=== PATIENT | female | born 1965 | race Caucasian/White ===

== ENCOUNTER 2016-04-14 07:07 | Inpatient (IN) | payer BC ==
[2016-04-08 16:50] LABS: HEMATOCRIT 43.2 % (36.0-48.0); HEMOGLOBIN 14.5 g/dL (12.0-16.0)
--- NOTE | ~2016-04-14 | CN ---
Consultation Report [facility] [address] [facility] [place]. [address] NAME: SANTO LESTER : 67 STATUS : ADM Ward PAT#: [id number] AGE: 51 ADM/REG DATE : 04/14/16 MR#: [id number] REPORT SERV DATE: 04/16/16 DICTATED BY: LORENZA AGEE DATE: 04/16/16 REPORT STATUS : Draft TRANSCRIBED BY: MODL DATE: 04/16/16 PULMONARY CONSULTATION DATE OF CONSULTATION: 04/16/2016 REASON FOR CONSULTATION: Persistent hypoxia. HISTORY OF PRESENT ILLNESS: Ms. Lester is a 51-year-old white female nonsmoker with a history of MS, who is status post partial thyroidectomy. She has persistent hypoxia and hypercapnia with notable atelectasis on chest imaging, so Pulmonary was consulted for assistance. Currently, the patient feels at her baseline. She states she has ongoing hypersomnolence and fatigue for several years and sleeps "all the time." She has had MS for some time and states her symptoms have been progressing. She describes profound weakness and significant limitation of her activities. She has never been evaluated with a sleep study or overnight oximetry. She denies other pulmonary symptoms including shortness of breath, cough, or wheezing. It is notable that she has remained hypoxic, hypercapnic, and lethargic despite pulmonary toilet and bronchodilators here as an inpatient. PAST MEDICAL HISTORY: 1. Postoperative pulmonary embolism in 1992 - the patient had partial thyroidectomy in 1992 and developed a postoperative pulmonary embolism. 2. Partial thyroidectomy this hospitalization. 3. Partial thyroidectomy in 1992. 4. Cholecystectomy. 5. GERD. 6. Hypothyroidism. 7. Hysterectomy. 8. D and C. 9. Tonsillectomy. FAMILY HISTORY: She denies a family history of pulmonary diseases. SOCIAL HISTORY: Ms. Lester is a lifelong nonsmoker. She denies ethanol intake, past/present drug use, chewing tobacco, or occupational exposures. She is and has one son. MEDICATIONS: Ms. Lester was on no pulmonary medications as an outpatient. ALLERGIES: HYDROCODONE. Consultation Report [facility] [address] [facility] [place]. [address] NAME: SANTO LESTER : 67 STATUS : ADM Ward PAT#: [id number] AGE: 51 ADM/REG DATE : 04/14/16 MR#: [id number] REPORT SERV DATE: 04/16/16 DICTATED BY: CYNDIELORENZA JOHANA DATE: 04/16/16 REPORT STATUS : Draft TRANSCRIBED BY: RIP DATE: 04/16/16 REVIEW OF SYSTEMS: A 10-point system review was conducted and is remarkable for the symptoms as described in the history of present illness. PHYSICAL EXAMINATION: VITAL SIGNS: Temperature 98.2 degrees, heart rate 82, blood pressure 99/54, respiratory rate 14, and oxygen saturation 96% on supplemental oxygen at a flow rate of 2.5 L/minute. GENERAL: Sleepy/lethargic white female. Awakens to voice, but does this frequently during exam. Oriented/appropriate. No apparent distress. HEENT: Normocephalic. Atraumatic. There is no scleral icterus. The conjunctivae are clear. The oropharynx is clear. LUNGS: Poor effort. There are diminished breath sounds throughout. There are no crackles, wheezes, or rhonchi. HEART: Regular rate and rhythm. ABDOMEN: Soft. Nontender. Nondistended. There are normal bowel sounds in all four quadrants. BILATERAL EXTREMITIES: There is no clubbing, cyanosis, or edema. NEUROLOGICAL: A limited exam was found to be nonfocal. There is significant generalized weakness. SKIN: No rashes were noted. LABORATORY RESULTS: The labs were reviewed and are as documented in the record. Notable labs include a white blood cell count of 9.0. The BNP is 110.6. Arterial blood gas done with the patient breathing supplemental oxygen at a flow rate of 2 L/minute revealed a pH of 7.35, pCO2 of 63, and pO2 of 51. IMAGING: Chest x-ray done this admission revealed bibasilar atelectasis, but no infiltrates. A CT angiogram of the chest done this admission revealed no infiltrates or effusions. There is no pulmonary embolism. There is significant atelectasis and eventration of the right hemidiaphragm. ASSESSMENT AND PLAN: Ms. Lester is a 51-year-old white female, nonsmoker, with atelectasis, hypercapnia, hypoxia, and chronic hypersomnolence likely secondary to hypoventilation related to her underlying multiple sclerosis. She likely would benefit from BiPAP, both inpatient and chronically as an outpatient. She is agreeable to a trial, so we will initiated it tonight if it is okay with ENT. She should qualify for home BiPAP based on her hypercapnia - as noted above, her pCO2 is 63 on arterial blood gas. She is hypoxic as well. Recommend continuing pulmonary toilet. We would evaluate her for home supplemental oxygen. Consultation Report [facility] [address] [place]. [address] NAME: SANTO LESTER : 67 STATUS : ADM Ward PAT#: [id number] AGE: 51 ADM/REG DATE : 04/14/16 MR#: [id number] REPORT SERV DATE: 04/16/16 DICTATED BY: LORENZA AGEE DATE: 04/16/16 REPORT STATUS : Draft TRANSCRIBED BY: RIP DATE: 04/16/16 Thank you very much for this consultation. PS/RIP Lorenza Agee M.D. / [id number] CC: Swapna Hoffman M.D.
--- NOTE | ~2016-04-14 | CN ---
Consultation Report [facility] [address] [place]. [address] NAME: SANTO ADDISON : 67 STATUS : ADM Ward PAT#: [id number] AGE: 51 ADM/REG DATE : 04/14/16 MR#: [id number] REPORT SERV DATE: 04/15/16 DICTATED BY: JANICE LUCAS DATE: 04/15/16 REPORT STATUS : Draft TRANSCRIBED BY: MODL DATE: 04/15/16 CONSULT DATE OF CONSULTATION: REASON FOR CONSULT: Postop hypoxia. HISTORY OF PRESENT ILLNESS: This is a very pleasant 51 years old female, very poor historian; she has a history of MS, but she is not on any treatment for that; history of prior thyroidectomy, partial, in 1992 with a small PE according to the patient after the procedure; she had a history of GERD; history of thyroid nodules, who has been admitted to ENT Service for partial left thyroid lobe removal performed by Dr. Rios on 04/14/2016. Postoperatively, the patient was doing great, but she was having difficulties weaning her oxygen down. She has not been complaining of any chest pain or increasing shortness of breath. No PND or orthopnea. She did not have any cough or sputum production. She has not had any nausea or vomiting. No other complaints. The patient was saturating about 75% on room air saturating about 90% to 93% on 2 L of oxygen. Hospitalist Service has been consulted for her postop hypoxia. PAST MEDICAL HISTORY: Significant for MS, thyroid nodule, GERD, PE, and history of hypothyroidism. PAST SURGICAL HISTORY: Includes partial thyroidectomy in 1992, cholecystectomy in 1999, D and C, hysterectomy in 1997, and tonsillectomy when she was 7 years old. SOCIAL HISTORY: She is denying tobacco, alcohol, or IV drugs. ALLERGIES: SHE IS ALLERGIC TO HYDROCODONE. FAMILY HISTORY: Significant for diabetes. HOME MEDICATIONS: She denies any home medications. OBJECTIVE: VITAL SIGNS: The patient is afebrile, blood pressure 119/63, heart rate 66, respiratory rate 16, saturating 92% on 2 L of oxygen. GENERAL: She is a very pleasant, well-developed, well-nourished female, in no acute distress. She is alert and oriented x3. She is nonfocal. She follows all her commands appropriately. HEENT: Exam shows pupils equal, round, reactive to light. Extraocular movements intact. No JVD. No lymphadenopathy. No thyromegaly appreciated. CHEST: Eval shows bilateral air entry. Clear anteroposterior. No wheezes, crackles, or rhonchi appreciated. CARDIOVASCULAR: She has regular rate and rhythm. S1, S2 positive. No S3, no S4. No murmurs, rubs, or gallops appreciated. Consultation Report [address] [place]. [address] NAME: SANTO ADDISON : 67 STATUS : ADM Ward PAT#: [id number] AGE: 51 ADM/REG DATE : 04/14/16 MR#: [id number] REPORT SERV DATE: 04/15/16 DICTATED BY: JANICE LUCAS DATE: 04/15/16 REPORT STATUS : Draft TRANSCRIBED BY: RIP DATE: 04/15/16 ABDOMEN: Soft with positive bowel sounds. Nontender. No guarding. No rebound. EXTREMITIES: No clubbing, cyanosis, or edema. NEUROLOGIC: The patient is alert and oriented x3. She is nonfocal. She follows all her commands appropriately. LABORATORY DATA: Labs from today include sodium 142, potassium 4.3, chloride 101, CO2 of 31, BUN 8, creatinine 0.55, glucose 245. Her white count is 6.9, hemoglobin 14.3, hematocrit 43.3, and platelets 138 on 04/14/2016. INR is 1.1. ASSESSMENT AND PLAN: This is a very pleasant 51 years old female. 1. Status post complete left thyroid nodule removal with postoperative hypoxia. 2. History of multiple sclerosis. 3. History of gastroesophageal reflux disease. We are going to plan an ABG for her. We are going to check a chest x-ray as well as a CT of chest with PE protocol. Check BNP and a set of cardiac enzymes. CBC as well. Nebulizer treatment. Check a hemoglobin A1c. We are going to provide incentive spirometer as well as followup labs in the morning. Further workup and recommendation pending above. Thank you for the consult. We will continue to follow with you. CF/MODL Janice Lucas M.D. / [id number] CC: Swapna Hoffman M.D.
--- NOTE | ~2016-04-14 | DS ---
Discharge Summary [facility] [address] [place]. [address] NAME: SANTO ADDISON : 67 STATUS : DIS IN PAT#: [id number] AGE: 51 ADM/REG DATE : 04/14/16 MR#: [id number] REPORT SERV DATE: 06/08/16 DICTATED BY: HOMERO STOUT DATE: 06/07/16 REPORT STATUS : Draft TRANSCRIBED BY: MODMichaela DATE: 06/07/16 ADMISSION DATE: 04/14/2016 DISCHARGE DATE: 04/20/2016 ADMITTING HISTORY AND PHYSICAL: The patient is a 51-year-old female with significant left thyroid lobe goiter and difficulty swallowing over the last the year. She has had a previous right thyroid lobectomy. PAST MEDICAL HISTORY: Includes and multiple sclerosis. PAST SURGICAL HISTORY: Includes tonsillectomy, ear surgery, hysterectomy, gallbladder, and again right thyroid lobectomy. MEDICATIONS: None. ALLERGIES: HYDROCODONE. FAMILY HISTORY: Pertinent for diabetes. PHYSICAL EXAMINATION: GENERAL: She was awake, alert, and oriented, in no acute distress. NECK: Examination of the neck shows a large left thyroid lobe goiter. BREASTS: Exam was not done. HEART: Regular rate and rhythm. LUNGS: Clear to auscultation. ABDOMEN: Soft. MUSCULOSKELETAL: Exam demonstrated some mild spasticity, but all extremities were mobile. HOSPITAL COURSE: The patient was admitted to the hospital on 04/14/2016 and underwent completion thyroidectomy with excision of the left thyroid lobe. The patient, postoperatively on postop day one, had some increased somnolence, but voice was clear and calcium levels were stable. Initially, the intention was to discharge to home on 04/15/2016; however, has continued to have increased somnolence and was asked to be seen by Pulmonology. She continued to be followed, continued to have increased somnolence. The Hospitalist Service also was following her and there is a suspicion for flareup of her multiple sclerosis causing respiratory suppression. She has changed to an inpatient status on 04/16/2016 after continuing with hypoxia and somnolence. She was eventually consulted by Neurology, where they noted encephalopathy with increased ammonia level and increased CO2 level. Was started on Solu-Medrol 500 mg IV b.i.d. for three days and had an MRI to evaluate for central lesion. While on her IV Solu-Medrol, she had marked improvement in her respiratory status and was transferred out of the intensive care unit to the floor on 04/19/2016. On 04/20/2016, she was stable and she was supporting her own oxygenation and was deemed stable for discharge to home. DISPOSITION: Home. Discharge Summary [facility] [id number] [address] NAME: SANTO ADDISON : 67 STATUS : DIS IN PAT#: [id number] AGE: 51 ADM/REG DATE : 04/14/16 MR#: [id number] REPORT SERV DATE: 06/08/16 DICTATED BY: HOMERO STOUT. DATE: 06/07/16 REPORT STATUS : Draft TRANSCRIBED BY: RIP DATE: 06/07/16 DISCHARGE MEDICATIONS: Include resumption of home medications. FOLLOWUP: With me in one week. DLA/CHAUNCEYL Homero Stout M.D. / [id number] CC: Swapna Hoffman M.D.
--- NOTE | ~2016-04-14 | CN ---
Consultation Report [facility] [address] [place]. [address] NAME: SANTO ADDISON : 67 STATUS : ADM Ward PAT#: [id number] AGE: 51 ADM/REG DATE : 04/14/16 MR#: [id number] REPORT SERV DATE: 04/17/16 DICTATED BY: DATE: REPORT STATUS : Draft TRANSCRIBED BY: MODL DATE: 04/17/16 NEUROLOGY CONSULTATION DATE OF CONSULTATION: 04/17/2016 REASON FOR CONSULT: Encephalopathy and history of multiple sclerosis. HISTORY OF PRESENT ILLNESS: This is a 51-year-old female, who presented to [facility] on 04/14/2016, for partial thyroidectomy, where patient has her residual thyroid tissue was removed, the patient afterwards was noted to have respiratory difficulties, required pulmonary consult, with the patient noted to have a CO2 retention. The patient was noted to have confusion for the past two to three days, it was significantly worse today, with the patient noted to have decreased level of consciousness. As a result, the patient was transferred from the floor to intensive care unit. The patient does carry a history of multiple sclerosis and diagnosis, which the patient was diagnosed by Dr. Claudio, roughly seven or eight years ago, the patient does not like the standard MS therapies side effect as a result, the patient is currently not on MS immune modulating therapy. The patient has not had any neurology follow up over the past one to two years. Previously, the patient's MS attack mostly consists of weakness, with the patient's most severe attack caused the patient to have difficulty walking. The patient usually treats the acute exacerbation with IV steroids at baseline, usually ambulates with a cane. Prior to the surgery patient does not appear to have any focal weakness, numbness, fever, or chill. During the hospitalization no reports of fever was otherwise noted. The patient's reports generalized weakness since the thyroidectomy, but otherwise denies any focal weakness, and denies any complaints of numbness from the patient. The patient does not have any cognitive difficulties and does not have any memory issues with disorientation prior to the hospitalization. PAST MEDICAL HISTORY: The patient's past medical history is significant for history of multiple sclerosis, as well as previous history of thyroidectomy in 1992, with the patient noted to have left thyroidectomy for the rest of the thyroid tissue on 04/14/2016, the patient also has had history of hypothyroidism, pulmonary embolisms after previous thyroid surgery, as well as gastroesophageal reflux disease. SOCIAL HISTORY: Denies tobacco, alcohol, or recreational drug usage. ALLERGIES: THE PATIENT WAS NOTED TO HAVE ALLERGY TO HYDROCODONE. FAMILY HISTORY: Significant for diabetes. CURRENT MEDICATIONS: DuoNeb, Glucotrol, Lovenox, NovoLog, Synthroid, the patient received p.o. Percocet during the hospitalization, as well as p.r.n. Zofran. REVIEW OF SYSTEMS: Unable to be obtained from the patient, according to family it is negative except for those Consultation Report [address] [address] NAME: SANTO ADDISON : 67 STATUS : ADM Ward PAT#: [id number] AGE: 51 ADM/REG DATE : 04/14/16 MR#: [id number] REPORT SERV DATE: 04/17/16 DICTATED BY: DATE: REPORT STATUS : Draft TRANSCRIBED BY: MODL DATE: 04/17/16 mentioned in the HPI. PHYSICAL EXAMINATION: VITAL SIGNS: The patient overnight was noted to have vital signs with T-max of 99.3, heart rate of 86 to 104, respirations of 12 to 22, and blood pressure of 111 to 139/55 to 74. GENERAL: The patient is well-developed, well-nourished, in no acute distress. CARDIOVASCULAR: Tachycardic, but otherwise no carotid bruits were auscultated. PULMONARY: Clear to auscultation bilaterally. NEUROLOGIC: Generally, the patient was obtunded, but arousable, difficulty maintaining arousal at the time of evaluation, with the patient noted to have obtundation, arousable with verbal and tactile stimulation. The patient is able to follow simple commands once aroused, the patient was noted to have BiPAP machine on as a result was noted to have difficulty verbalization. Cranial nerves 2 through 12. Pupils equal, round, and reactive to light. Horizontal eye movement was noted to be intact with blink to threat response. At the time of evaluation, was noted to have symmetrical bilateral upper face expression. The patient otherwise is able to move bilateral upper and lower extremities on command at this time of evaluation. The patient noted to have sensation in bilateral upper and lower extremities. Deep tendon reflex was otherwise 1+ throughout. No plantar reflexes were obtainable, secondary to the patient's mental status. Gait and cerebellar examination was not evaluated. LABORATORY STUDIES: At the time of evaluation demonstrated white blood cell count of 9.0, hemoglobin of 12.2, hematocrit of 39.1, and platelet count of 115. Chemistry panel, sodium 142, potassium 4.0, chloride 100, bicarb 34, BUN of 6, creatinine 0.53, glucose of 212, calcium of 8.4, magnesium of 1.8. Serum ammonia level of 52, folate of 13.0, vitamin B12 was 620, TSH of 0.402, free T4 of 1.23. ABG demonstrated pH of 7.34, pCO2 was 65, PO2 of 57, bicarb of 34.1, and O2 saturation of 89.1. No neuro imaging was currently available. IMPRESSION: Encephalopathy, increased pCO2, as well as hypoxia noted, on ABG with hyperammonemia concern for possible etiology contributing to the patient's encephalopathy. The patient also has a history of multiple sclerosis, concern for possible MS attack as well, we will repeat serum ammonia level in the morning. Meanwhile, we will start the patient on trial of IV Solu-Medrol 500 mg IV b.i.d. for three days. MRI of the brain with and without contrast when the patient is clinically stable. RECOMMENDATION: 1. Repeat serum ammonia level. 2. Solu-Medrol 500 mg IV b.i.d. x3 days. 3. MRI of the brain with and without contrast when the patient is clinically stable. 4. Critical care to manage patient's respiratory issues. [facility]/MODL Consultation Report [address] [place]. [address] NAME: SANTO ADDISON : 67 STATUS : ADM Ward PAT#: [id number] AGE: 51 ADM/REG DATE : 04/14/16 MR#: [id number] REPORT SERV DATE: 04/17/16 DICTATED BY: DATE: REPORT STATUS : Draft TRANSCRIBED BY: MODL DATE: 04/17/16 Wilbert Boyer MD / [id number] CC: Swapna Hoffman M.D.
--- NOTE | ~2016-04-14 | OP ---
Record Of Operation [facility] [address] [place]. [address] NAME: SANTO ADDISON : 67 STATUS : ADM IN PAT#: [id number] AGE: 51 ADM/REG DATE : 04/14/16 MR#: [id number] REPORT SERV DATE: 04/20/16 DICTATED BY: HOMERO STOUT DATE: 04/20/16 REPORT STATUS : Draft TRANSCRIBED BY: MODMichaela DATE: 04/20/16 DATE OF PROCEDURE: 04/14/2016 PREOPERATIVE DIAGNOSIS: Left thyroid lobe goiter. POSTOPERATIVE DIAGNOSIS: Left thyroid lobe goiter. PROCEDURE PERFORMED: Left thyroid completion thyroidectomy. INDICATIONS AND SIGNIFICANT HISTORY: The patient is a 51-year-old female with significant history of multiple sclerosis who has a history of right thyroid lobectomy many years before. She has since had progression of the left thyroid lobe nodule and was felt to benefit from thyroid lobectomy or completion thyroidectomy. OPERATIVE PROCEDURE AND FINDINGS: After informed consent was obtained, the patient was brought to the operating room and placed on the operating table in the supine position at which point general endotracheal anesthesia was induced by the Anesthesia Service, and the neck was scrubbed, prepped, and prepped in the standard sterile fashion. A 15-blade scalpel was used to make an incision in her low midportion of the neck through an old scar. The old scar was excised partially using a Metzenbaum scissors. At this point, subplatysmal flaps were elevated superiorly and inferiorly. Strap muscles were divided in the midline and extended laterally. Blunt dissection was utilized over the left thyroid lobe. Middle thyroid veins were encountered and divided with bipolar cautery. Superior pole vessel was isolated with a right angle clamp and divided with Harmonic scalpel. The inferior pole vessels were divided in a similar fashion. Next, going from lateral to medial, soft tissue was reflected off the surface of the left thyroid lobe in attempts to preserve the parathyroid function. The recurrent laryngeal nerve was identified and preserved throughout the case. The left thyroid lobe was then removed and was passed to Pathology for permanent sectioning. The patient's wound was inspected. She did have a fair amount of bloody drainage and a raw wound bed. This was controlled. A 10-flat YANA drain was placed into the wound and brought out through a separate stab incision. The patient's wound was then closed in multiple layers consisting of a deep Vicryl suture followed by closure of the skin with Prolene. Steri-Strips were applied. She was turned back towards anesthesia, aroused from anesthesia, and taken to the postanesthesia care unit in satisfactory condition. COMPLICATIONS: None. ESTIMATED BLOOD LOSS: 100 mL. IV FLUIDS: Per Anesthesia. ELI/RIP Homero Jennings Record Of Operation [facility] [address] [facility] [address] [facility] [address] NAME: SANTO ADDISON : 67 STATUS : ADM IN [facility]#: [id number] AGE: 51 ADM/REG DATE : 04/14/16 MR#: [id number] REPORT SERV DATE: 04/20/16 DICTATED BY: HOMERO STOUT. DATE: 04/20/16 REPORT STATUS : Draft TRANSCRIBED BY: RIP DATE: 04/20/16 Swapna Stout / [id number] CC: Swapna Hoffman M.D.
[~2016-04-14 07:07] MED LIST: *DENIES; NO HOME MEDS; [UNRECOGNIZED DRUG - OTHER]
[2016-04-14 08:08] LABS: BASOPHILS 0.1 %; BASOPHILS ABSOLUTE 0.01 10/3/uL (0.0-0.16); EOSINOPHILS 1.4 %; HEMATOCRIT 43.3 % (36.0-48.0); HEMOGLOBIN 14.3 g/dL (12.0-16.0); IMMATURE GRANULOCYTES 0.4 %; IMMATURE GRANULOCYTES ABSOLUTE 0.03 10/3/uL (0.0-0.11); LYMPHOCYTES 30.8 %; LYMPHOCYTES ABSOLUTE 2.13 10/3/uL (0.67-4.30); MEAN CORPUSCULAR HEMOGLOB 30.6 pg (26.0-34.0); MEAN CORPUSCULAR VOLUME 92.7 fL (80-100); MEAN PLATELET VOLUME 9.5 fL (9.2-13.0); MONOCYTES 5.1 %; MONOCYTES ABSOLUTE 0.35 10/3/uL (0.21-1.20); NEUTROPHILS 62.2 %; NEUTROPHILS ABSOLUTE 4.29 10/3/uL (2.02-8.40); PLATELET COUNT 138 10/3/uL (150-400); RBC DISTRIBUTION WIDTH 13.6 % (12.0-16.0); RED CELL COUNT 4.67 10/6/uL (4.0-5.6); WHITE BLOOD CELLS 6.9 10/3/uL (4.5-10.5)
[2016-04-14 08:09] LABS: MANUAL DIFF NO %
[2016-04-14 08:15] LABS: INTERNATIONAL NORMAL RATI 1.1 UNITS (-); PROTIME (NOT ORD) 13.7 SEC (12.0-14.5)
[2016-04-14 08:23] LABS: BUN (BLOOD UREA NITROGEN) 10 MG/DL (6-23); CALCIUM, SERUM 8.9 MG/DL (8.5-10.4); CHLORIDE, SERUM 106 MMOL/L (96-112); CO2 (CARBON DIOXIDE) 28 MMOL/L (24-34); CREATININE 0.54 MG/DL (0.55-1.02); GFR AFRICAN AMERICAN 128 ML/MIN (>=60); GFR NON AFRICAN AMERICAN 110 ML/MIN (>=60); GLUCOSE, SERUM 200 MG/DL (60-99); POTASSIUM, SERUM 3.7 MMOL/L (3.5-5.3); SODIUM, SERUM 145 MMOL/L (135-148)
[2016-04-14 10:35] LABS: PTH TAT 0 Hrs 19 Mins
[2016-04-15 06:20] LABS: BUN (BLOOD UREA NITROGEN) 8 MG/DL (6-23); CALCIUM, SERUM 8.3 MG/DL (8.5-10.4); CHLORIDE, SERUM 101 MMOL/L (96-112); CO2 (CARBON DIOXIDE) 31 MMOL/L (24-34); CREATININE 0.55 MG/DL (0.55-1.02); GFR AFRICAN AMERICAN 127 ML/MIN (>=60); GFR NON AFRICAN AMERICAN 109 ML/MIN (>=60); POTASSIUM, SERUM 4.3 MMOL/L (3.5-5.3); SODIUM, SERUM 142 MMOL/L (135-148)
[2016-04-15 06:22] LABS: GLUCOSE, SERUM 245 MG/DL (60-99)
[2016-04-15] MEDS ORDERED: ENDOCET1 TAB PO (08:43)
[2016-04-15] MEDS ORDERED: ZOFRAN ODT4 MG PO (08:44)
[2016-04-15] MEDS ORDERED: LEVOTHYROXIN100 MCG PO (08:45)
[2016-04-15 15:48] LABS: ALLENS TEST Pos; BE (BASE EXCESS) 6.4 MEQ/L (0 +/- 2.5); DEVICE NC; HCO3 (ACTUAL BICARBONATE) 33.9 MEQ/L (23-27); HEMOBLOGIN CONTENT 12.4 G/DL (12-16); INSTRUMENT SERIAL # 8083; METHEMOGLOBIN 0.1 % (0-3); O2 CONTENT 14.8 VOL% (18-24); PCO2 (CO2 TENSION) 63 MMHG (35-45); PO2 (O2 TENSION) 51 MMHG (79-93); SAMPLE Arterial; pH 7.35 (7.37-7.43)
[2016-04-15 16:28] LABS: B NATRIURETIC PEPTIDE (BNP) 110.6 PG/ML (< 100.0)
[2016-04-15 16:49] LABS: CK-MB 5.7 NG/ML; FOLATE 9.3 NG/ML (>5.2); TROPONIN I 0.03 NG/ML (<0.05)
[2016-04-15 21:39] LABS: GLYCOHEMOGLOBIN (HbA1c) 8.1 % (4.7-6.1)
[2016-04-16 06:32] LABS: BASOPHILS 0.1 %; BASOPHILS ABSOLUTE 0.01 10/3/uL (0.0-0.16); EOSINOPHILS 0.7 %; EOSINOPHILS ABSOLUTE 0.06 10/3/uL (0.0-0.53); HEMATOCRIT 39.1 % (36.0-48.0); HEMOGLOBIN 12.2 g/dL (12.0-16.0); IMMATURE GRANULOCYTES ABSOLUTE 0.09 10/3/uL (0.0-0.11); LYMPHOCYTES 15.9 %; LYMPHOCYTES ABSOLUTE 1.43 10/3/uL (0.67-4.30); MEAN CORPUSCULAR HEMOGLOB 29.5 pg (26.0-34.0); MEAN CORPUSCULAR VOLUME 94.7 fL (80-100); MEAN PLATELET VOLUME 9.9 fL (9.2-13.0); MONOCYTES 5.2 %; MONOCYTES ABSOLUTE 0.47 10/3/uL (0.21-1.20); NEUTROPHILS 77.1 %; NEUTROPHILS ABSOLUTE 6.95 10/3/uL (2.02-8.40); PLATELET COUNT 115 10/3/uL (150-400); RBC DISTRIBUTION WIDTH 14.2 % (12.0-16.0); RED CELL COUNT 4.13 10/6/uL (4.0-5.6)
[2016-04-16 06:33] LABS: MANUAL DIFF NO %; MEAN CORPUS HGB CONC 31.2 g/dL (32.0-36.0)
[2016-04-16 06:50] LABS: BUN (BLOOD UREA NITROGEN) 8 MG/DL (6-23); CALCIUM, SERUM 8.4 MG/DL (8.5-10.4); CHLORIDE, SERUM 104 MMOL/L (96-112); CO2 (CARBON DIOXIDE) 32 MMOL/L (24-34); CREATININE 0.52 MG/DL (0.55-1.02); GFR AFRICAN AMERICAN 129 ML/MIN (>=60); GFR NON AFRICAN AMERICAN 111 ML/MIN (>=60); POTASSIUM, SERUM 3.5 MMOL/L (3.5-5.3); SODIUM, SERUM 145 MMOL/L (135-148)
[2016-04-16 06:53] LABS: GLUCOSE, SERUM 183 MG/DL (60-99)
[2016-04-16 21:30] LABS: ALLENS TEST Pos; BE (BASE EXCESS) 6.1 MEQ/L (0 +/- 2.5); CARBOXYHEMOGLOBIN 0.7 % (0-3); HCO3 (ACTUAL BICARBONATE) 33.5 MEQ/L (23-27); HEMOBLOGIN CONTENT 11.4 G/DL (12-16); INSTRUMENT SERIAL # 8083; METHEMOGLOBIN 0.1 % (0-3); OPERATOR ID 31061; PCO2 (CO2 TENSION) 64 MMHG (35-45); PO2 (O2 TENSION) 71 MMHG (79-93); SAMPLE Arterial; pH 7.34 (7.37-7.43)
[2016-04-17 04:44] LABS: BUN (BLOOD UREA NITROGEN) 6 MG/DL (6-23); CALCIUM, SERUM 8.4 MG/DL (8.5-10.4); CHLORIDE, SERUM 100 MMOL/L (96-112); CO2 (CARBON DIOXIDE) 34 MMOL/L (24-34); CREATININE 0.53 MG/DL (0.55-1.02); GFR AFRICAN AMERICAN 128 ML/MIN (>=60); GFR NON AFRICAN AMERICAN 111 ML/MIN (>=60); GLUCOSE, SERUM 212 MG/DL (60-99); SODIUM, SERUM 142 MMOL/L (135-148)
[2016-04-17 05:29] LABS: ALLENS TEST Pos; BE (BASE EXCESS) 6.4 MEQ/L (0 +/- 2.5); DEVICE NC; HCO3 (ACTUAL BICARBONATE) 34.1 MEQ/L (23-27); HEMOBLOGIN CONTENT 12.2 G/DL (12-16); INSTRUMENT SERIAL # 8083; METHEMOGLOBIN 0.1 % (0-3); O2 CONTENT 15.1 VOL% (18-24); PCO2 (CO2 TENSION) 65 MMHG (35-45); PO2 (O2 TENSION) 57 MMHG (79-93); SAMPLE Arterial; pH 7.34 (7.37-7.43)
[2016-04-17 11:13] LABS: ALBUMIN 2.8 G/DL (3.5-5.0); ALKALINE PHOSPHATASE 114 U/L (45-117); DIRECT BILIRUBIN 0.2 MG/DL (0.0-0.4); INDIRECT BILIRUBIN(NOT ORDER) 0.5 MG/DL (0.1-0.9); SGOT(AST) 56 U/L (5-40); SGPT(ALT) 64 U/L (5-65); TOTAL BILIRUBIN 0.7 MG/DL (0-1.2)
[2016-04-17 12:18] LABS: FREE T4 1.23 NG/DL (0.76-1.46)
[2016-04-17 12:20] LABS: ULTRASENSITIVE TSH 0.402 MCIU/ML (0.358-3.740)
[2016-04-17 14:04] LABS: ALLENS TEST Pos; BE (BASE EXCESS) 6.7 MEQ/L (0 +/- 2.5); BIPAP 18/5 cm.H2O; CARBOXYHEMOGLOBIN 1.3 % (0-3); HCO3 (ACTUAL BICARBONATE) 34.6 MEQ/L (23-27); HEMOBLOGIN CONTENT 12.3 G/DL (12-16); INSTRUMENT SERIAL # 8083; METHEMOGLOBIN 0.2 % (0-3); O2 CONTENT 16.6 VOL% (18-24); PCO2 (CO2 TENSION) 67 MMHG (35-45); PO2 (O2 TENSION) 92 MMHG (79-93); SAMPLE Arterial; pH 7.33 (7.37-7.43)
[2016-04-17 14:14] LABS: BE (BASE EXCESS) 6.4 MEQ/L (0 +/- 2.5); DEVICE NC; HCO3 (ACTUAL BICARBONATE) 34.1 MEQ/L (23-27); HEMOBLOGIN CONTENT 12.2 G/DL (12-16); INSTRUMENT SERIAL # 8083; METHEMOGLOBIN 0.1 % (0-3); O2 CONTENT 15.1 VOL% (18-24); PCO2 (CO2 TENSION) 65 MMHG (35-45); PO2 (O2 TENSION) 57 MMHG (79-93); SAMPLE Arterial; pH 7.34 (7.37-7.43)
[2016-04-17 14:15] LABS: ALLENS TEST Pos
[2016-04-18 03:58] LABS: BE (BASE EXCESS) 6.5 MEQ/L (0 +/- 2.5); CARBOXYHEMOGLOBIN 0.6 % (0-3); HCO3 (ACTUAL BICARBONATE) 33.5 MEQ/L (23-27); HEMOBLOGIN CONTENT 11.8 G/DL (12-16); INSTRUMENT SERIAL # 8083; METHEMOGLOBIN 0.2 % (0-3); O2 CONTENT 15.1 VOL% (18-24); PCO2 (CO2 TENSION) 61 MMHG (35-45); PO2 (O2 TENSION) 63 MMHG (79-93); pH 7.36 (7.37-7.43)
[2016-04-18 03:59] LABS: ALLENS TEST Pos; BIPAP 18/5 cm.H2O; OPERATOR ID 31061; SAMPLE Arterial
[2016-04-18 05:19] LABS: BASOPHILS 0 %; EOSINOPHILS 0 %; HEMOGLOBIN 10.9 g/dL (12.0-16.0); IMMATURE GRANULOCYTES 0.8 %; IMMATURE GRANULOCYTES ABSOLUTE 0.04 10/3/uL (0.0-0.11); LYMPHOCYTES 7.9 %; LYMPHOCYTES ABSOLUTE 0.41 10/3/uL (0.67-4.30); MEAN CORPUS HGB CONC 32.2 g/dL (32.0-36.0); MEAN CORPUSCULAR HEMOGLOB 30.4 pg (26.0-34.0); MEAN CORPUSCULAR VOLUME 94.4 fL (80-100); MEAN PLATELET VOLUME 9.5 fL (9.2-13.0); MONOCYTES 0.6 %; MONOCYTES ABSOLUTE 0.03 10/3/uL (0.21-1.20); NEUTROPHILS 90.7 %; NEUTROPHILS ABSOLUTE 4.73 10/3/uL (2.02-8.40); PLATELET COUNT 110 10/3/uL (150-400); RED CELL COUNT 3.59 10/6/uL (4.0-5.6)
[2016-04-18 05:22] LABS: HEMATOCRIT 33.9 % (36.0-48.0); MANUAL DIFF NO %; WHITE BLOOD CELLS 5.2 10/3/uL (4.5-10.5)
[2016-04-18 05:37] LABS: A/G RATIO 0.7 (0.7-1.9); ALBUMIN 2.4 G/DL (3.5-5.0); CALCIUM, SERUM 8.6 MG/DL (8.5-10.4); CHLORIDE, SERUM 99 MMOL/L (96-112); CO2 (CARBON DIOXIDE) 30 MMOL/L (24-34); CREATININE 0.44 MG/DL (0.55-1.02); GFR AFRICAN AMERICAN 136 ML/MIN (>=60); GFR NON AFRICAN AMERICAN 118 ML/MIN (>=60); GLOBULIN 3.3 G/DL (2.5-4.1); GLUCOSE, SERUM 242 MG/DL (60-99); POTASSIUM, SERUM 3.9 MMOL/L (3.5-5.3); SGOT(AST) 28 U/L (5-40); SGPT(ALT) 50 U/L (5-65); SODIUM, SERUM 137 MMOL/L (135-148); TOTAL BILIRUBIN 0.7 MG/DL (0-1.2); TOTAL PROTEIN 5.7 G/DL (6.0-8.5)
[2016-04-18 05:43] LABS: ALKALINE PHOSPHATASE 88 U/L (45-117); BUN (BLOOD UREA NITROGEN) 12 MG/DL (6-23)
[2016-04-18 06:37] LABS: PROCALCITONIN 0.21 ng/mL (<0.5)
[2016-04-19 05:45] LABS: BASOPHILS 0 %; EOSINOPHILS 0 %; HEMATOCRIT 33.6 % (36.0-48.0); HEMOGLOBIN 10.6 g/dL (12.0-16.0); IMMATURE GRANULOCYTES 0.7 %; IMMATURE GRANULOCYTES ABSOLUTE 0.04 10/3/uL (0.0-0.11); LYMPHOCYTES 6.4 %; LYMPHOCYTES ABSOLUTE 0.39 10/3/uL (0.67-4.30); MEAN CORPUS HGB CONC 31.5 g/dL (32.0-36.0); MEAN CORPUSCULAR HEMOGLOB 30.5 pg (26.0-34.0); MEAN CORPUSCULAR VOLUME 96.6 fL (80-100); MEAN PLATELET VOLUME 9.8 fL (9.2-13.0); MONOCYTES 1.6 %; NEUTROPHILS 91.3 %; NEUTROPHILS ABSOLUTE 5.56 10/3/uL (2.02-8.40); PLATELET COUNT 108 10/3/uL (150-400); RBC DISTRIBUTION WIDTH 13.9 % (12.0-16.0); RED CELL COUNT 3.48 10/6/uL (4.0-5.6); WHITE BLOOD CELLS 6.1 10/3/uL (4.5-10.5)
[2016-04-19 05:46] LABS: MANUAL DIFF NO %
[2016-04-19 06:07] LABS: BUN (BLOOD UREA NITROGEN) 14 MG/DL (6-23); CALCIUM, SERUM 8.5 MG/DL (8.5-10.4); CHLORIDE, SERUM 108 MMOL/L (96-112); CO2 (CARBON DIOXIDE) 33 MMOL/L (24-34); CREATININE 0.55 MG/DL (0.55-1.02); GFR AFRICAN AMERICAN 127 ML/MIN (>=60); GFR NON AFRICAN AMERICAN 109 ML/MIN (>=60); GLUCOSE, SERUM 279 MG/DL (60-99); PHOSPHORUS, SERUM 1.8 MG/DL (2.5-4.5); POTASSIUM, SERUM 4.4 MMOL/L (3.5-5.3)
[2016-04-19 06:08] LABS: SODIUM, SERUM 147 MMOL/L (135-148)
[2016-04-20 04:59] LABS: BASOPHILS 0.2 %; BASOPHILS ABSOLUTE 0.01 10/3/uL (0.0-0.16); EOSINOPHILS 0 %; HEMATOCRIT 33.7 % (36.0-48.0); HEMOGLOBIN 10.5 g/dL (12.0-16.0); IMMATURE GRANULOCYTES 0.8 %; IMMATURE GRANULOCYTES ABSOLUTE 0.05 10/3/uL (0.0-0.11); LYMPHOCYTES 9.2 %; LYMPHOCYTES ABSOLUTE 0.61 10/3/uL (0.67-4.30); MEAN CORPUS HGB CONC 31.2 g/dL (32.0-36.0); MEAN CORPUSCULAR HEMOGLOB 30.3 pg (26.0-34.0); MEAN CORPUSCULAR VOLUME 97.4 fL (80-100); MEAN PLATELET VOLUME 9.6 fL (9.2-13.0); MONOCYTES ABSOLUTE 0.13 10/3/uL (0.21-1.20); NEUTROPHILS 87.8 %; NEUTROPHILS ABSOLUTE 5.85 10/3/uL (2.02-8.40); PLATELET COUNT 118 10/3/uL (150-400); RBC DISTRIBUTION WIDTH 14.2 % (12.0-16.0); RED CELL COUNT 3.46 10/6/uL (4.0-5.6); WHITE BLOOD CELLS 6.7 10/3/uL (4.5-10.5)
[2016-04-20 05:02] LABS: MANUAL DIFF NO %
[2016-04-20 05:23] LABS: BUN (BLOOD UREA NITROGEN) 15 MG/DL (6-23); CALCIUM, SERUM 8.4 MG/DL (8.5-10.4); CHLORIDE, SERUM 107 MMOL/L (96-112); CO2 (CARBON DIOXIDE) 34 MMOL/L (24-34); CREATININE 0.61 MG/DL (0.55-1.02); GFR AFRICAN AMERICAN 123 ML/MIN (>=60); GFR NON AFRICAN AMERICAN 106 ML/MIN (>=60); GLUCOSE, SERUM 246 MG/DL (60-99); SODIUM, SERUM 146 MMOL/L (135-148)
[2016-04-20 05:30] LABS: PHOSPHORUS, SERUM 2.8 MG/DL (2.5-4.5)
[2016-04-20] MEDS ORDERED: GLUCPH PO (11:47)
== END 2016-04-20 18:58 | disposition home or self-care (01) | DRG 625 ==
LOC: SDC 07:07 → 5SO 13:36 → MIC 04-17 11:57 → 4SO 04-19 14:31
PROVIDERS: Internal Medicine; Internal Medicine Critical Care Medicine; Internal Medicine Pulmonary Disease; Otolaryngology
PROC: 0GTG0ZZ Resection of Left Thyroid Gland Lobe, Open Approach (ICD-10-PCS; principal; 2016-04-14 08:15)
DX: E04.9 Nontoxic goiter, unspecified (principal); J96.91 Respiratory failure, unspecified with hypoxia; J96.92 Respiratory failure, unspecified with hypercapnia; G93.49 Other encephalopathy; I95.9 Hypotension, unspecified; E11.9 Type 2 diabetes mellitus without complications; G35 Multiple sclerosis; E03.9 Hypothyroidism, unspecified; Z86.711 Personal history of pulmonary embolism; K21.9 Gastro-esophageal reflux disease without esophagitis; E66.9 Obesity, unspecified; E16.2 Hypoglycemia, unspecified; Z68.32 Body mass index [BMI] 32.0-32.9, adult
CPT/HCPCS: 36415; 36600; 71010; 71275; 80048; 80053; 80076; 82140; 82330; 82550; 82553; 82607; 82746; 82805; 82962; 83036; 83735; 83880; 83970; 84100; 84145; 84439; 84443; 84484; 85014; 85018; 85025; 85610; 85730; 87493; 87493-59; 87641; 88307; 93005; 94640; 94660; 97161-GP; A9270-GY; J0690; J1940; J2250; J2270; J2370; J2405; J2710; J3010; Q9967